=== PATIENT | male | born 1995 | race Caucasian/White ===

== ENCOUNTER 2023-07-20 15:52 | Outpatient (CLI) | payer OTHER, MEDICAID, SELFPAY | END 2023-07-20 15:53 | disposition home or self-care (01) | PROVIDERS: PCP Family Medicine; Visit Provider Family Medicine | DX: Z00.00 Encounter for general adult medical examination without abnormal findings (principal); F33.9 Major depressive disorder, recurrent, unspecified; Z13.1 Encounter for screening for diabetes mellitus; Z13.6 Encounter for screening for cardiovascular disorders | CPT/HCPCS: 80053; 80061 ==

== ENCOUNTER 2024-08-11 08:20 | Outpatient (CLI) | payer OTHER, SELFPAY | END 2024-08-11 08:21 | disposition home or self-care (01) | PROVIDERS: PCP Physician Assistant Medical; Visit Provider Physician Assistant Medical | DX: E78.1 Pure hyperglyceridemia (principal); R74.01 Elevation of levels of liver transaminase levels | CPT/HCPCS: 80061; 84450; 84460 ==

== ENCOUNTER 2024-08-19 10:31 | Outpatient (CLI) | payer OTHER, SELFPAY ==
--- NOTE | 2024-08-19 10:45 | CRLHL7_ITS ---
For Patients: As a result of the Century Cures Act, medical imaging exams and procedure reports are released immediately into your electronic medical record. You may view this report before your referring provider. If you have questions, please contact your health care provider. INDICATION: Elevated liver transaminase levels TECHNIQUE: Ultrasound abdomen limited. Sonographic images of the right upper quadrant were obtained using zee-scale and color Doppler images. COMPARISON: None FINDINGS: Liver: Diffusely increased in echogenicity. No masses. No intrahepatic biliary dilatation. Gallbladder: No stones or sludge. Normal wall thickness. No pericholecystic fluid. Common bile duct: Obscured by bowel gas, no intrahepatic biliary dilatation. Pancreas: Partially obscured by bowel gas without discrete lesion. Right kidney: Normal in size. Normal echotexture and cortex. No masses, stones, or hydronephrosis. Vasculature: Proximal abdominal aorta and IVC are normal. IMPRESSION: 1. Moderate to severe hepatic steatosis. 2. Midline structures obscured by bowel gas, otherwise the remainder of the right upper quadrant ultrasound is unremarkable. Dictated by Franklin Chandra MD @ 08/19/2024 3:42:19 PM (Electronically Signed)
== END 2024-08-19 10:32 | disposition home or self-care (01) ==
LOC: US 10:32
PROVIDERS: PCP Physician Assistant Medical; Visit Provider Physician Assistant Medical
DX: R74.01 Elevation of levels of liver transaminase levels (principal); K76.0 Fatty (change of) liver, not elsewhere classified
CPT/HCPCS: 76705